=== PATIENT | male | born 1945 | race African-American/Black ===

== ENCOUNTER 2017-11-26 14:06 | Emergency (ER) | payer OTHER, MEDICARE ==
[2017-11-26] MEDS ORDERED: TRAMADOL HCL 50 MG TABLET PO ONE (15:03)
--- NOTE | 2017-11-26 15:35 | RADIOLOGY REPORT (SQ) ---
EXAM DESCRIPTION: FOOT RIGHT COMPLETE COMPLETED DATE/TIME: 11/26/2017 3:25 pm REASON FOR STUDY: pain COMPARISON: None. NUMBER OF VIEWS: Three views. TECHNIQUE: AP, lateral and oblique radiographic images acquired of the right foot. LIMITATIONS: None. FINDINGS: MINERALIZATION: Normal. BONES: No acute fracture or dislocation. No worrisome bone lesions. JOINTS: No effusions. SOFT TISSUES: There is diffuse soft tissue swelling most marked dorsally. There is a small radiopaqu e foreign body overlying the 3rd proximal phalanx on the PA projection. This lies ventrally on the l ateral projection. OTHER: No other significant finding. IMPRESSION: Diffuse soft tissue swelling. No fracture. No conventional radiographic evidence of os teomyelitis. There is a foreign body demonstrated ventrally overlying the 3rd proximal phalanx. Thi s may be a chronic finding. Clinical correlation is needed. TECHNICAL DOCUMENTATION: JOB ID: [id number] [employer]- All Rights Reserved Reading location - IP/workstation name: [email or web address]
--- NOTE | 2017-11-26 16:30 | ER Document Report ---
ED General - General Chief Complaint: Foot Pain Stated Complaint: FOOT PAIN Time Seen by Provider: 11/26/17 15:03 TRAVEL OUTSIDE OF THE [place] IN LAST 30 DAYS: No - HPI Patient complains to provider of: Right foot pain Notes: Patient coming in for evaluation of right foot pain right leg swelling. Patient states ongoing for the last 3 days. Patient states has a history of gout however has never had gout in his foot. Patient denies any fever chills nausea vomiting diarrhea. Patient resting comfortably upon my evaluation. Denies any trauma to the leg or to the foot - Related Data Allergies/Adverse Reactions: No Known Allergies Allergy (Verified 11/26/17 14:10) Past Medical History - Social History Smoking Status: Unknown if Ever Smoked Family History: Reviewed & Not Pertinent Patient has suicidal ideation: No Patient has homicidal ideation: No - Past Medical History Cardiac Medical History: Reports: Hx Congestive Heart Failure, Hx Hypertension Denies: Hx Atrial Fibrillation, Hx Coronary Artery Disease, Hx Heart Attack, Hx Hypercholesterolemia, Hx Peripheral Vascular Disease, Hx Heart Murmur Pulmonary Medical History: Denies: Hx Tuberculosis Endocrine Medical History: Reports: Hx Diabetes Mellitus Type 2. Denies: Hx Graves' Disease, Hx Hyperthyroidism, Hx Hypothyroidism Renal/ Medical History: Denies: Hx Benign Prostatic Hyperplasia, Hx End Stage Renal Disease, Hx Kidney Stones, Hx Peritoneal Dialysis Malignancy Medical History: Denies Hx Leukemia GI Medical History: Reports: Hx Gastroesophageal Reflux Disease Infectious Medical History: Denies: Hx HIV Past Surgical History: Denies: Hx Pacemaker - Immunizations Hx Diphtheria, Pertussis, Tetanus Vaccination: No Hx Pneumococcal Vaccination: 02/05/11 Review of Systems - Review of Systems Constitutional: No symptoms reported EENT: No symptoms reported Cardiovascular: No symptoms reported Respiratory: No symptoms reported Gastrointestinal: No symptoms reported Genitourinary: No symptoms reported Male Genitourinary: No symptoms reported Musculoskeletal: Other - Leg swelling pain Skin: No symptoms reported Hematologic/Lymphatic: No symptoms reported Neurological/Psychological: No symptoms reported -: Yes All other systems reviewed and negative Physical Exam - Vital signs Vitals: Temp Pulse Resp BP Pulse Ox 98.7 F 103 H 16 129/83 H 96 11/26/17 14:16 11/26/17 14:16 11/26/17 14:16 11/26/17 14:16 11/26/17 14:16 Interpretation: Normal - General General appearance: Appears well, Alert - HEENT Head: Normocephalic, Atraumatic Eyes: Normal Pupils: PERRL - Respiratory Respiratory status: No respiratory distress Chest status: Nontender Breath sounds: Normal Chest palpation: Normal - Cardiovascular Rhythm: Regular Heart sounds: Normal auscultation Murmur: No - Abdominal Inspection: Normal Distension: No distension Bowel sounds: Normal Tenderness: Nontender Organomegaly: No organomegaly - Back Back: Normal, Nontender - Extremities General upper extremity: Normal inspection, Nontender, Normal color, Normal ROM , Normal temperature General lower extremity: Normal inspection, Edema - 2+ bilaterally, Normal color , Normal ROM, Normal temperature, Normal weight bearing, Other - Examination of the right foot reveals no area tenderness pulses intact the dorsum of the foot is quite edematous however capillary refill is intact in the digits.. No: Radha 's sign - Neurological Neuro grossly intact: Yes Cognition: Normal Orientation: AAOx4 Breann Coma Scale Eye Opening: Spontaneous [place] Coma Scale Verbal: Oriented [place] Coma Scale Motor: Obeys Commands [place] Coma Scale Total: 15 Speech: Normal Motor strength normal: LUE, RUE, LLE, RLE Sensory: Normal - Psychological Associated symptoms: Normal affect, Normal mood - Skin Skin Temperature: Warm Skin Moisture: Dry Skin Color: Normal Course - Re-evaluation Re-evalutation: 11/26/17 19:37 X-rays not showing signs of acute fracture is a foreign body seen the examination of the foot does not reveal any signs of a penetrating wound more likely this was a chronic retained foreign body. Patient will be discharged on pain control recommend follow-up primary care physician elevation of the leg to help out with the edema. - Vital Signs Vital signs: Temp Pulse Resp BP Pulse Ox 98.5 F 90 16 128/84 H 97 11/26/17 16:33 11/26/17 16:33 11/26/17 16:33 11/26/17 16:33 11/26/17 16:33 Discharge - Discharge Clinical Impression: Leg swelling Foot pain Qualifiers: Laterality: unspecified laterality Qualified Code(s): M79.673 - Pain in unspecified foot Condition: Good Disposition: HOME, SELF-CARE Instructions: Edema, Peripheral ([facility]), Elevate the Injury ([facility]) Additional Instructions: X-ray of the foot does not show any signs of fracture. Please follow-up with your primary care physician. At this time we will give you medication to help out with the pain. Would also recommend taking Tylenol 650 mg for your pain. Please keep your leg elevated above the level of your heart to help out with her swelling. Return to ER symptoms worsen follow-up with your primary care physician. Prescriptions: Tramadol HCl [Ultram 50 mg Tablet] 50 mg PO ASDIR PRN #20 tablet PRN Reason: Referrals: LOCALMD,NO [NO LOCAL MD] - Follow up as needed
[2017-11-26 16:41] VITALS: BP 128/84
== END 2017-11-26 16:33 | disposition home or self-care (01) ==
LOC: ER 14:06
DX: M79.671 Pain in right foot (principal); M79.89 Other specified soft tissue disorders; I10 Essential (primary) hypertension; E11.9 Type 2 diabetes mellitus without complications
CPT/HCPCS: 99283